=== PATIENT | male | born 1940 | race Caucasian/White ===

== ENCOUNTER 2017-02-02 05:40 | Inpatient (IN) ==
[2017-02-02] MEDS ORDERED: ceFAZolin Inj 2gm (Premix) 2 GM/50 ML BAG IV ONE (05:57)
[2017-02-02] MEDS ORDERED: Lactated Ringers 1,000 ML PRIMARY IV ONE ×2 (05:57→08:10)
[2017-02-02] MEDS ORDERED: LIDOCAINE W/ SODIUM BICARB 0.5 ML SYR ONE (05:57)
[2017-02-02] MEDS ORDERED: Vancomycin Inj 1gm vial ONE (06:27)
[2017-02-02] MEDS ORDERED: TRANEXAMIC ACID 1,000 MG / 10 ML VIAL ONE ×3 (06:27→07:23)
[2017-02-02] MEDS ORDERED: BUPIVACAINE 0.25% W/ EPI - 10 ML VIAL ONE (06:27)
[2017-02-02] MEDS ORDERED: Sodium Chloride 0.9% 2,000 ML ONE (06:28)
[2017-02-02] MEDS ORDERED: BUPivacaine Liposome/PF (Exparel) Inj 20ml vial INFIL ONE (06:47)
[2017-02-02] MEDS ORDERED: MIDAZOLAM 5 MG/1 ML ONE (06:57)
[2017-02-02] MEDS ORDERED: LIDOCAINE 2%/ EPI 1:200,000 - 20 ML VIAL ONE (06:57)
[2017-02-02] MEDS ORDERED: BUPivacaine Inj 0.5% PF (5mg/ml) 30ml vial ONE (06:57)
[2017-02-02] MEDS ORDERED: fentaNYL Inj 250 MCG/5 ML VIAL ONE (06:57)
[2017-02-02] MEDS ORDERED: cloNIDine HCL/PF 100 MCG/ML - 10 ML VIAL ONE (06:57)
[2017-02-02] MEDS ORDERED: fentaNYL Inj 100 MCG/2 ML VIAL ONE (07:15)
[2017-02-02] MEDS ORDERED: PROPOFOL 10 MG/1 ML (200 MG/20 ML) VIAL IV ONE (07:19)
--- NOTE | 2017-02-02 07:25 | CRNA.PROCE ---
Nerve Block Documentation - - Type of Nerve Block Used: Left Adductor Canal Nerve Block Position for Nerve Block: Supine Moniters Used During Block: EKG, SPO2, NIBP Sedation Used - Enter Amount in Comment Field [ANES.SEDAT]: Midazolam (mg): Yes (3mg), Fentanyl (mcg): Yes (100mcg) Skin Prep Used: ChloroPrep Draped: No Technique: Nerve Stimulator Nerve Block Needle Used: 100 mm ProBlk II Stimulation Hz: 2 Stimulation Staring mA: 1.4 Stimulation Ending mA: 0.4 Local Anesthetic - Enter Amt in Comment Field [ANES.LOCNB]: 0.5 % Bupivacaine Plain (mL): Yes (20ml), 2 % Xylocaine with Epinephrine 1:200,000 (mL): Yes (20ml ) - - PreOp Block : Time In: 06:50 PreOp Block : Time Out: 07:08 - - Additional Details: Landmarks id'd by US Anesthesia Time - Other Weight: 91.626 kg Height: 5 ft 9 in Body Mass Index (BMI): 29.8
[2017-02-02] MEDS ORDERED: Sodium Chloride 0.9% 100 ML IV ONE (07:34)
[2017-02-02] MEDS ORDERED: Ondansetron ODT Tab 8 MG TAB PO PRN (09:48)
[2017-02-02] MEDS ORDERED: ACETAMINOPHEN 325 MG TABLET PO PRN (09:48)
[2017-02-02] MEDS ORDERED: NORMAL SALINE 10 ML SYRINGE FLUSH IVP PRN (09:48)
[2017-02-02] MEDS ORDERED: diphenhydrAMINE 25 MG CAPSULE PO PRN (09:48)
[2017-02-02] MEDS ORDERED: BISACODYL 10 MG SUPPOSITORY RECTAL PRN (09:48)
[2017-02-02] MEDS ORDERED: KETOROLAC 15 MG/1 ML VIAL IVP PRN (09:48)
[2017-02-02] MEDS ORDERED: IBUPROFEN 400 MG TABLET PO PRN (09:48)
[2017-02-02] MEDS ORDERED: Prochlorperazine Tab 10 MG TAB PO PRN (09:48)
[2017-02-02] MEDS ORDERED: CALCIUM CARBONATE 500 MG (TUMS) CHEWABLE TABLET PO PRN (09:48)
[2017-02-02] MEDS ORDERED: ONDANSETRON 4 MG/2 ML VIAL IVP PRN (09:48)
[2017-02-02] MEDS ORDERED: BISACODYL 5 MG TABLET PO PRN (09:48)
[2017-02-02] MEDS ORDERED: MAG HYDROX/AL HYDROX/SIMETH 30 ML SUSP PO PRN (09:48)
[2017-02-02] MEDS ORDERED: MORPHINE SULFATE 2 MG/1 ML IVP PRN (09:48)
--- NOTE | 2017-02-02 09:58 | ORTHO.PROG ---
Last Taken Vital Signs: Vital Signs - Last Taken Temperature 96.9 F 02/02/17 06:30 Pulse Rate 54 L 02/02/17 06:30 Respiratory Rate 14 02/02/17 06:30 Blood Pressure 152/81 02/02/17 06:30 Pulse Ox 97 02/02/17 06:30 Subjective: Surgical NOte Preop dx: Left knee OA Postop dx: Same Procedure: Left TKA Surgeon: Ulisses Assist: Fedore Blood loss: Minimal Implants: Rola Persona Findings as expected TT: 78 mins at 250mm HG
--- NOTE | 2017-02-02 10:16 | CRNA.PROCE ---
Central Neuraxis Block Placemt - - Safety Measures: Time Out Taken, Site Verified - - Type of Block: Subarachnoid Reason for Block: Surgical Moniters Used During Block: EKG, SPO2, NIBP Skin Prep Used: ChloroPrep Draped: No Spinal Needle Used: 25 Rodriguez 80 mm Local Anesthetic - Enter Amount Used in Comment Field: 0.75 % Bupivacaine with Dextrose (ml): Yes Additive Used - Enter Amount Used in Comment Field: Fentanyl (mcg): Yes (15mcg) , Epinephrine 1:1000 Needle Rinse (mL): Yes (barrel wash) Bioclusive Dressing Applied: No Anesthesia Time - Block Time PreOp Block : Time In: 06:50 PreOp Block : Time Out: 07:08 - Other Weight: 91.626 kg Height: 5 ft 9 in Body Mass Index (BMI): 29.8
--- NOTE | 2017-02-02 10:17 | CRNA.PROGR ---
Anesthesia Time - - Start date: 02/02/17 End date: 02/02/17 - Procedure/Recovery Time Anesthesia : Time In: 07:39 Anesthesia : Time Out: 10:16 Anesthesia : Total Time: 157 - Block Time PreOp Block : Time In: 06:50 PreOp Block : Time Out: 07:08 PreOp Block : Total Time: 18 - Total Anesthesia Time Total Anesthesia Time (minutes): 175 - Other Weight: 91.626 kg Height: 5 ft 9 in Body Mass Index (BMI): 29.8 Physical Status: P3 Anesthesia Type: Spinal Block
[2017-02-02] MEDS ORDERED: MORPHINE SULFATE 4 MG/1 ML IV PRN (11:05)
[2017-02-02] MEDS ORDERED: MORPHINE SULFATE 10 MG/1 ML IV PRN (11:05)
--- NOTE | 2017-02-02 13:56 | CONSULT ---
Consult Note - Consult Reason for Consult: PostOp Consulation : Ortho Requesting Physician: Dr. Gtz Primary Care Provider: MIRIAM PRITCHETT HPI - History of Present Illness History of Present Illness: This very nice 76-year-old gentleman who comes in to have an elective the left total knee arthroplasty by Dr. Gtz is postop and is doing well without any complaints Past Medical History Medical History: Hypertension, hypercholesterolemia, diabetes Surgical History: Left TKA Tobacco Use: Former Smoker Do you dip or chew tobacco: No In the Past 12 Months, Have Used or Abuse Any of the Following Substance: None Review of Systems - Review of Systems All Systems: Reviewed & No Additional Complaints Except as Stated - Respiratory Respiratory: DENIES: Negative System Review, Cough, Sputum, Dyspnea At Rest, Dyspnea with Exertion, Pleuritic Pain, Hemoptysis, Wheezing, Other, See HPI - Cardiovascular Cardiovascular: DENIES: Negative System Review, Chest Pain, Edema, Syncope, Palpitations, Orthopnea, Paroxysmal Nocturnal Dyspnea, Other, See HPI - Gastrointestinal Gastrointestinal / Abdominal: DENIES: Negative System Review, Nausea, Vomiting, Diarrhea, Constipation, Abdominal Pain, Bloody Stool, Poor Appetite, Heartburn, Regurgitation, Bloating, Lactose Intolerance, Melena, Bright Red Blood per Rectum, Other, See HPI Medication / Allergies Home Medications: Home Medications Medication Instructions Recorded Confirmed Type Aspirin 325 mg PO DAILY 01/30/17 01/30/17 History Atorvastatin Calcium 20 mg PO DAILY 01/30/17 01/30/17 History Insulin Glargine,Hum.rec.anlog 100 unit DAILY 01/30/17 01/30/17 History [Lantus] Insulin NPH Hum/Reg Insulin Hm 1 unit SUBCUT DAILY 01/30/17 02/02/17 History [Novolin 70-30 100 Unit/ml Vial] Losartan Potassium 100 mg PO DAILY 01/30/17 01/30/17 History Metoprolol Tartrate Tab 25 mg PO BID 02/02/17 02/02/17 History [Lopressor Tab] Allergies/Adverse Reactions: Allergies 3 Allergy/AdvReac Type Severity Reaction Status Date / Time No Known Allergies Allergy Unverified 02/02/17 06:00 Exam - Vitals Vital Signs: Vital Signs Temperature 97 F Temperature Source Temporal Artery Scan Pulse Rate [Pulse Oximeter] 63 Pulse Rate 54 Respiratory Rate 16 Blood Pressure [Left Arm] 136/72 Blood Pressure 99/56 Pulse Ox 98 Oxygen Flow Rate 3 Oxygen Delivery Method Nasal Cannula Height 5 ft 8 in Weight 202 lb - General General Appearance: No Acute Distress, Cooperative - Head Head Exam: Normal Inspection, Normocephalic, Atraumatic - Eye Eye Exam: POSITIVE: Normal Appearance, PERRL, EOMI, No Scleral Icterus - Neck Neck Exam: Normal Inspection, Full ROM, No Tenderness, No Lymphadenopathy, No Thyromegaly, JVP is not Raised - Respiratory Respiratory Exam: POSITIVE: Clear to Auscultation - Bilaterally, Breathing Non Labored, Normal To Percussion, Normal to Percussion and Palpation - Cardiovascular Cardiovascular Exam: POSITIVE: RRR, No Murmur, No Clicks, No Gallops, No Rubs, PMI Non-Displaced - GI/Abdominal GI/Abdominal Exam: POSITIVE: Normal Bowel Sounds, Non Tender, Non Distended, Soft, No Masses, No Hepatomegaly, No Splenomegaly, No Organomegaly Assessment and Plan - Patient Problems (1) Knee arthropathy Current Visit: No Status: Acute Comment: Status post left TKA defer to Dr. Gtz for anticoagulation and pain management PT OT orders Code(s): M17.10 - Unilateral primary osteoarthritis, unspecified knee (2) Diabetes mellitus Current Visit: No Status: Acute Comment: Continue current home meds Code(s): E11.9 - Type 2 diabetes mellitus without complications (3) HTN (hypertension) Current Visit: No Status: Acute Comment: Resume home meds the patient's blood pressure is much improved now 136 over high 80s Code(s): I10 - Essential (primary) hypertension (4) Hx of CABG Current Visit: No Status: Acute Comment: Stable at present time continue cholesterol medication and beta alma Code(s): Z95.1 - Presence of aortocoronary bypass graft
[2017-02-02] MEDS: Lactated Ringers 1,000 ML PRIMARY IV SCH ×2 (14:40→21:36)
[2017-02-02] MEDS: ceFAZolin Inj 2gm (Premix) 2 GM/50 ML BAG IV SCH (15:43)
[2017-02-02] MEDS: MORPHINE SULFATE 2 MG/1 ML IV PRN ×2 (15:43→19:33)
[2017-02-02] MEDS: oxyCODONE-ACETAMINOPHEN 5-325 TAB PO PRN ×2 (17:28→21:32)
--- NOTE | 2017-02-02 20:35 | DI ---
EXAM: XR Left Knee, 3 views CLINICAL HISTORY: Physician Notes: AP and lateral left knee. Tech Comments: Postop TECHNIQUE: Three views of the left knee. COMPARISON: No relevant prior studies available. FINDINGS: Bones/joints: Patient has had a left knee arthroplasty. Chronic appearing densities around the joint. Soft tissues: There is gas in the soft tissues. IMPRESSION: There is gas in the soft tissues. Perhaps postoperative. Correlate for infection.
[2017-02-02] MEDS: DOCUSATE 100 MG CAPSULE PO SCH (21:33)
[2017-02-03] MEDS: ceFAZolin Inj 2gm (Premix) 2 GM/50 ML BAG IV SCH (00:30)
[2017-02-03] MEDS: oxyCODONE-ACETAMINOPHEN 5-325 TAB PO PRN ×2 (01:58→08:01)
[2017-02-03 04:39] VITALS: RESP 18
[2017-02-03] MEDS ORDERED: Tranexamic Acid 3,000 MG in Sodium Chloride 0.9% 100 ML IRRIG ONE (06:00)
[2017-02-03] MEDS ORDERED: LIDOCAINE W/ SODIUM BICARB 0.5 ML SYR SUBD ONE (06:00)
[2017-02-03] MEDS ORDERED: ceFAZolin Inj 2gm (Premix) 2 GM/50 ML BAG IV ONE (06:00)
[2017-02-03] MEDS ORDERED: Lactated Ringers 1,000 ML PRIMARY IV SCH (06:00)
[2017-02-03 06:08] LABS: BLOOD UREA NITROGEN 19 mg/dL (7-22); BUN/CREATININE RATIO 23.75 (6-20)
[2017-02-03 06:09] LABS: Hematocrit [HCT] 46.6 % (42.0-52.0); Hemoglobin [HGB] 15.8 g/dL (14.0-18.0); MEAN CORPUSCULAR HEMOGLOBIN 29.6 PG (27-31); MEAN CORPUSCULAR HGB CONC 33.9 g/dL (33-37); MEAN CORPUSCULAR VOLUME 87.3 FL (80-90); MEAN PLATELET VOLUME 10.6 FL (7.4-12.2); RED BLOOD COUNT 5.34 10^6/uL (4.70-6.10)
[2017-02-03] MEDS ORDERED: Insulin NPH/Reg 70/30 Kwikpen 100 UNIT/ML INSULN.PEN SUBCUT SCH ×2 (07:00→09:00)
[2017-02-03 07:24] VITALS: BP 155/65; TEMP 98.7; O2SAT 91
[2017-02-03] MEDS ORDERED: Glucagon Inj Vial 1 MG/ML VIAL IM PRN (07:30)
[2017-02-03] MEDS ORDERED: DEXTROSE 31 GM GEL PO PRN (07:30)
[2017-02-03] MEDS ORDERED: DEXTROSE 50%-WATER SYRINGE 50 ML SYRINGE IVP PRN (07:30)
[2017-02-03] MEDS ORDERED: Insulin Sliding Scale Protocol SUBCUT PRN (07:30)
[2017-02-03] MEDS ORDERED: ENOXAPARIN SODIUM 30 MG/0.3 ML SYRINGE SUBCUT SCH (09:00)
[2017-02-03] MEDS ORDERED: ASPIRIN 325 MG EC TABLET PO SCH (09:00)
[2017-02-03] MEDS: DOCUSATE 100 MG CAPSULE PO SCH (09:51)
--- NOTE | 2017-02-03 10:05 | PTI REPORT ---
Thank you for the referral of Wilmer Hernández. He was seen on 02/02/17 for an inpatient evaluation status post left total knee arthroplasty. SUBJECTIVE: The patient is a 76-year-old male. At the time of the evaluation the patient's was present in the room. The patient reports he got up to his room on the third floor at approximately 11:00 AM and states at this point his knee is feeling very good. He states he has a high pain tolerance and his goal is to go home as soon as possible. The patient and his spouse report they live in [place], just outside of [facility] in [place]. PAST MEDICAL HISTORY: Past medical history can be found in the patient's medical record. OBJECTIVE FINDINGS: Pain: The patient reports a pain level currently of 4 to 5/10 on the verbal analog scale (0=no pain, 10=worst pain). He has not yet received his afternoon pain medication yet. Incision/Edema: The patient's incision and edema were unable to be inspected due to the post surgical bandage which was beginning to show sanguineous drainage strike through along the incision. Bed mobility: The patient was able to perform bed mobility with stand by assistance as well as verbal cues for use of the right lower extremity. Strength/Range of motion: Strength and range of motion were not formally tested ; however, in bed the patient was able to perform an independent straight leg raise with an extensor lag as well as active heel pumps. Transfers: The patient was able to perform three sit to stand transfers with verbal and tactile cues for propre hand placement when standing up and sitting down. Ambulation: The patient also demonstrated the ability to ambulate 10 feet within his room with walker, gait belt, and contact guard assistance with verbal cues for correct placement or for use of the walker. ASSESSMENT: Problem List: Pain in the left knee Decreased passive and active range of motion in the left knee Decreased strength in the left knee Short-Term Goals: To be met by discharge from inpatient: Patient will be able to transfer from bed to stand independently. Patient will be able to ambulate 100 feet with walker, weight-bearing as tolerated. Patient will be able to ascend and descend five stairs using walker, weight- bearing as tolerated. Long-Term Goals: To be met following discharge from inpatient: Patient will be seen as an outpatient to continue physical therapy services. TREATMENT PLAN: Patient will be seen B.I.D during the week and one time per day over the weekend as an inpatient to address the above goals and objectives. INITIAL TREATMENT: Treatment today consisted of the initial evaluation followed by the patient performing bed mobility with verbal cues and stand by assistance only from supine to edge of bed. The patient was able to sit unsupported at edge of bed for greater than five minutes while completing respiratory activities without difficulty or complaints of increased pain or nausea. The patient was able to ambulate 10 feet within his room with weight-bearing as tolerated on the left lower extremity with use of gait belt, standard walker, and contact guard assistance. The patient was able to perform bed mobility from edge of bed to supine with verbal cues for use of the right lower extremity to assist with the left lower extremity. The patient was placed in a heel prop position and was educated on the use of the bed and was encouraged to keep the knee section of the bed straight to prevent knee flexion contractures. The patient's bandage was also reinforced with an ABD pad and 4" Coban as provided by the third floor. SHERRON
--- NOTE | 2017-02-03 10:31 | PDOC(PROG) ---
Interval History: Hospitalist service on consult for this patient Patient is doing great has no complaints had physical therapy today and did well they have cleared him to be discharged home. No chest pain nausea vomiting Objective : Data - Labs CBC and BMP: 02/03/17 04:39 02/03/17 04:39 Objective : Exam - General General Appearance: Cooperative - Respiratory Respiratory Exam: Clear to Auscultation - Bilaterally, Breathing Non Labored, Normal To Percussion, Normal to Percussion and Palpation - Cardiovascular Cardiovascular Exam: RRR, No Murmur, No Clicks, No Gallops, No Rubs, PMI Non- Displaced Assessment and Plan - Patient Problems (1) Knee arthropathy Current Visit: No Status: Acute Comment: Deferred to Dr. Gtz for anticoagulation and pain I believe all his prescriptions are in his chart Code(s): M17.10 - Unilateral primary osteoarthritis, unspecified knee (2) Diabetes mellitus Current Visit: No Status: Acute Comment: Resume usual medication Code(s): E11.9 - Type 2 diabetes mellitus without complications (3) HTN (hypertension) Current Visit: No Status: Acute Comment: Resume usual medication at home Code(s): I10 - Essential (primary) hypertension (4) Hx of CABG Current Visit: No Status: Acute Code(s): Z95.1 - Presence of aortocoronary bypass graft
[2017-02-03] MEDS ORDERED: [UNRECOGNIZED DRUG - OTHER] SUBCUT SCH (11:00)
--- NOTE | 2017-02-03 18:12 | ORTHO.PROG ---
Last Taken Vital Signs: Vital Signs - Last Taken Temperature 98.7 F 02/03/17 07:23 Pulse Rate 93 02/03/17 07:23 Respiratory Rate 18 02/03/17 07:23 Blood Pressure 155/65 02/03/17 07:23 Pulse Ox 91 02/03/17 07:23 Subjective: Spoke with nurse about pt, pt passed therapy this am and discharged home. Will follow up with myself in 1 week.
--- NOTE | 2017-02-04 10:47 | PT AM DAY ---
Diagnosis : Left Total Knee Arthroplasty AM - Physical Therapy S: The patient reports no new changes. O: The patient was brought to the physical therapy department by OT. The patient was having some problems with his dressing becoming saturated with blood. We did change that dressing and reinforce the dressing, placing a new one on it. The patient still was oozing quite a bit of dark red blood from the very bottom of the incision. We did try to replace with a Silverlon, but he continued to drain while in therapy. We did replace his dressing with Coban, ABD pad, and 4X4s. The patient A: The patient's dressing will probably need to be changed regularly while in the hospital and maybe even at home. The patient did very well with his actual physical therapy activities and demonstrated 0 degrees of extension to almost 100 degrees of knee flexion. The patient is able to ambulate and do stairs quite quickly. The patient's overall PT goals are being met quite well. He is still having extra drainage from the base of the wound in the form of a dark red, bloody discharge, probably from in between the layers of the tissues post surgery. He may need continued follow up for that dressing change. P: Continue seeing patient BID during the week and one time per day over the weekend for transfers, ambulation, and range of motion/strengthening exercises. MTDD
== END 2017-02-03 10:20 | disposition home or self-care (01) | DRG 470 ==
LOC: OPS 05:40 → MED/SURG 10:45
PROVIDERS: ADMIT Orthopaedic Surgery; ATTEND Orthopaedic Surgery